=== PATIENT | female | born 1980 | race African-American/Black ===

== ENCOUNTER 2024-02-28 10:25 | Emergency (ER) | payer MEDICAID, OTHER ==
[~2024-02-28] VITALS: Ht 162.6 cm; Wt 98.7 kg
[2024-02-28 11:16] VITALS: BP 146/77; PULSE 105; RESP 18; O2SAT 97
[2024-02-28 14:27] LABS: Urine Bacteria None Seen /hpf (None Seen)
[2024-02-28 14:42] LABS: Urine Blood Negative /uL (Negative); Urine Clarity Clear (Clear); Urine Color Yellow (Yellow); Urine Mucus FEW (None Seen); Urine Protein, UAD Negative (Negative); Urine Specific Gravity 1.015 (1.001-1.035); Urine Urobilinogen Normal (Negative); Urine WBC 1 /hpf (0 - 5); Urine pH 6.5 (5.0-9.0)
== END 2024-02-28 12:04 | disposition left against medical advice (07) ==
LOC: ER 10:25
DX: S61.031A Puncture wound without foreign body of right thumb without damage to nail, initial encounter (principal); Z53.21 Procedure and treatment not carried out due to patient leaving prior to being seen by health care provider; W26.0XXA Contact with knife, initial encounter; Y93.89 Activity, other specified; Y92.89 Other specified places as the place of occurrence of the external cause; Y99.8 Other external cause status
CPT/HCPCS: 81001

== ENCOUNTER 2024-02-28 13:40 | Emergency (ER) | payer MEDICAID ==
[~2024-02-28] VITALS: Ht 162.6 cm; Wt 98.0 kg
[2024-02-28 14:40] VITALS: BP 142/85; PULSE 114; RESP 18; O2SAT 99
== END 2024-02-28 15:45 | disposition left against medical advice (07) ==
LOC: ER 13:40
DX: S61.431A Puncture wound without foreign body of right hand, initial encounter (principal); Z53.21 Procedure and treatment not carried out due to patient leaving prior to being seen by health care provider; W26.8XXA Contact with other sharp object(s), not elsewhere classified, initial encounter; Y93.89 Activity, other specified; Y92.89 Other specified places as the place of occurrence of the external cause; Y99.8 Other external cause status